=== PATIENT | male | born 1965 | race Two or more races ===

== ENCOUNTER 2023-12-12 05:08 | Day surgery (SDC) | payer OTHER ==
[2023-12-12] MEDS ORDERED: ANESTHESIA TRAY IN PYXIS 1 EA TRAY MC ONE (06:10)
[2023-12-12] MEDS ORDERED: BUPIVACAINE 0.5 % PF 150 MG/30 ML VIAL ONE (06:10)
[2023-12-12] MEDS ORDERED: EPINEPHRINE (1:1000) 1 MG/ML AMPUL ONE (06:11)
[2023-12-12] MEDS ORDERED: FENTANYL PF 100MCG/2ML AMPUL ONE (06:26)
[2023-12-12] MEDS ORDERED: MIDAZOLAM HCL 2 MG/2ML VIAL ONE (06:26)
[2023-12-12] MEDS ORDERED: ROPIVACAINE HCL 0.5% 5 MG/ML 30ML VIAL ONE (06:37)
[2023-12-12] MEDS ORDERED: D5W IV PRN (07:30)
[2023-12-12] MEDS ORDERED: LABETALOL HCL IV PRN (07:30)
[2023-12-12] MEDS ORDERED: LABETALOL HCL IV 100MG VIAL IV ONE (08:00)
== END 2023-12-12 10:07 | disposition home or self-care (01) ==
LOC: DS 05:08
PROVIDERS: ATTEND Specialist
DX: M75.42 Impingement syndrome of left shoulder (principal); M75.22 Bicipital tendinitis, left shoulder; E11.9 Type 2 diabetes mellitus without complications; E66.01 Morbid (severe) obesity due to excess calories; I10 Essential (primary) hypertension; Z98.890 Other specified postprocedural states; Z79.899 Other long term (current) drug therapy
CPT/HCPCS: 29823; 29828; 82962; A4217; J0171; J0330; J0690; J2250; J2405; J2704; J2765; J2795; J3010; J3490